=== PATIENT | female | born 1945 | race Caucasian/White ===

== ENCOUNTER → 2018-01-27 12:47 | Outpatient (CLI) | payer MEDICARE, BC, SELFPAY ==
[2018-01-27 13:23] LABS: Add Manual Diff / Slide Review NO; Basophils Percent Auto 0.9 % (0-2); Eosinophils Percent Auto 1.6 % (2-4); Lymphocytes Percent Auto 25.7 % (25-40); Mean Corpuscular HGB Conc 34.2 % (30-36); Mean Corpuscular Hemoglobin 29.5 PG (26-34); Mean Corpuscular Volume 86.5 fL (80-100); Monocytes Percent Auto 9.7 % (3-14); Neutrophils Absolute Auto 4000 /uL (3000-5900); Neutrophils Percent Auto 62.1 % (50-75); Platelet Count 213 X10^3/uL (150-400); Red Blood Cell Count 4.74 X10^6/uL (4.0-5.2); White Blood Cell Count 6.4 X10^3/uL (4.5-11.0)
[2018-01-27 14:05] LABS: Alanine Aminotransferase 39 IU/L (9-52); Albumin 4.2 g/dL (3.5-5.0); Albumin Globulin Ratio 1.6 (1.0-2.8); Alkaline Phosphatase 72 U/L (38-126); Aspartate Aminotransferase 27 IU/L (14-36); BUN Creatinine Ratio 24.3 (6-22); Bilirubin Total 0.5 mg/dL (0.2-1.3); Blood Urea Nitrogen 17 mg/dL (7-17); Calcium 9.1 mg/dL (8.4-10.2); Carbon Dioxide 26 mmol/L (22-32); Chloride 101 mmol/L (98-107); Cholesterol 147 mg/dL (140-199); Estimated Glomerular Filt Rate > 60.0 mL/min (>60); Globulin 2.7 g/dL (1.7-4.1); Glucose 96 mg/dL (80-110); HDL Cholesterol 42 mg/dL (40-60); HEMOLYSIS < 15 (0-50); LDL Cholesterol Calculated 86 mg/dL (<100); Potassium 4.7 mmol/L (3.4-5.1); Sodium 137 mmol/L (137-145); Total Protein 6.9 g/dL (6.3-8.2); Triglycerides 97 mg/dL (35-150)
== END ==
PROVIDERS: PCP Family Medicine; Visit Provider Family Medicine
DX: I10 Essential (primary) hypertension (principal); Z13.220 Encounter for screening for lipoid disorders
CPT/HCPCS: 36415; 80053; 80061; 85025

== ENCOUNTER → 2018-11-27 12:34 | Outpatient (CLI) | payer MEDICARE, BC, SELFPAY | PROVIDERS: PCP Student in an Organized Health Care Education/Training Program; Visit Provider Student in an Organized Health Care Education/Training Program | DX: M81.0 Age-related osteoporosis without current pathological fracture (principal); Z78.0 Asymptomatic menopausal state; Z91.89 Other specified personal risk factors, not elsewhere classified; Z87.891 Personal history of nicotine dependence | CPT/HCPCS: 77080 ==

== ENCOUNTER 2019-03-05 09:45 | Outpatient (RCR) | payer MEDICARE, BC, SELFPAY ==
--- NOTE | 2019-02-25 15:40 | PT.OIE ---
Current Diagnoses Benign paroxysmal vertigo, unspecified ear (02/25/19) Benign paroxysmal vertigo, right ear (02/25/19) Dizziness and giddiness (02/25/19) Past Medical History (Last Reviewed 01/27/18 @ 12:33 by Deandre Whitaker MD) Asthma (Chronic Unknown) Hirsutism (Chronic Unknown) Hypertension (Chronic Unknown) Amenorrhea (Resolved Unknown) Pneumonia (Resolved 1984) Menieres disease (Inactive Unknown) Past Surgical History (Last Reviewed 01/27/18 @ 12:33 by Deandre Whitaker MD) History of tonsillectomy and adenoidectomy (Resolved ~194) Provider Visit Care Team Role Provider Type Bruce Michelle MD Attending Provider Physician Primary Care Provider Specialty: Internal Medicine Address: [address] [place] [address] Email: Physical Therapy Initial Evaluation PT-OP-A Visit Information Start: 02/25/19 15:16 Freq: Status: Active Protocol: Document 02/25/19 14:30 DCW (Rec: 02/25/19 15:40 DCW [id number]) Out-Patient Physical Therapy Visit Information Visit Information Visit Type Initial Evaluation Visit Start Time 14:30 Visit Stop Time 15:15 Total Visit Minutes 45 Visit Number 1 Number of FRAME CLEANER Visits 0 Evaluation Information Evaluation Date 02/25/19 PT-OP-B Current Condition Start: 02/25/19 15:16 Freq: Status: Active Protocol: Document 02/25/19 14:30 DCW (Rec: 02/25/19 15:40 DCW [id number]) Current Condition History of Current Condition Onset Date 2007 Current Complaints Position-dependent vertigo History of Current Condition Pt is a 73 year old female complaining of an 11 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 Pt reports episodes last a few seconds at a time, but when it is active, it will normally continue with most movement for 3-4 days. Symptoms are typically provoked by bending forward or rolling in bed. Pt notes when it began in 2007, she was living in [facility] at the time, and doing a lot of work on her home, which involved a lot of bending over . Pt denies recent hearing changes, tinnitus, diplopia, dysarthria, discoordination, or decreased mentation/ consciousness. Pt reports symptoms are waxing/waning in nature. Pt denies hx of hyperlipidemia, diabetes, arrhythmia, head trauma, seizure, migraines, back/neck problems, CVA, anxiety/panic disorders, depression, or excessive smoking or drinking. Treatment Goals Patient/Caregiver Goals Eliminate position-dependent vertigo Prior Functional Status Baseline Function- ADL's Independent Baseline Function- Mobility Independent Current Functional Impairments (Reported) Functional Limitations- ADL's Vertigo when bending over and rolling in bed PT-OP-C Subjective Start: 02/25/19 15:16 Freq: Status: Active Protocol: Document 02/25/19 14:30 DCW (Rec: 02/25/19 15:40 DCW [id number]) Patient Questionnaires ABC- Activity Specific Balance Confidence Scale ABC Score 68.13% ABC Functional Impairment 20 to <40% Impaired (Score 61- 80) Dizziness Handicap Inventory DHI Score 66% DHI Functional Impairment 60 to 79% Impaired (Score 60- 79) PT-OP-O Vestibular Start: 02/25/19 15:16 Freq: Status: Active Protocol: Document 02/25/19 14:30 DCW (Rec: 02/25/19 15:40 DCW [id number]) Vestibular Assessment Screening Tests Vestibular Artery Screen Negative Sharp-Luciano Test Negative Auditory Tests Olson Test Negative Rinne Test Negative Air Conduction Results Equal Visual Testing Smooth Pursuits Horizontal Negative Smooth Pursuits Vertical Negative Saccades Horizontal Negative Gaze Evoked Nystagmus With Fixation Negative Gaze Evoked Nystagmus Without Fixation Negative Heave Test Positive Bilateral Thrust Head Positive Bilateral Head Shake Negative Spontaneous Nystagmus Negative Positional Testing Mayo-Hallpike Positive Right Negative Left Rolling Test Negative Left Negative Right Supine to Sit Negative Sit to Supine Negative Comments Vestibular Comments Pt complained of vertigo in right Naheed-Hallpike, however pt was rapidly blinking and it was difficult to distinguish if there was true nystagmus. PT-OP-Q Treatments Start: 02/25/19 15:16 Freq: Status: Active Protocol: Document 02/25/19 14:30 DCW (Rec: 02/25/19 15:40 DCW [id number]) Canalithic Repositioning BPPV Treatment [place] Affected Canal(s) R posterior Reps x2 PT-OP-T Assessment and Plan Start: 02/25/19 15:16 Freq: Status: Active Protocol: Document 02/25/19 14:30 DCW (Rec: 02/25/19 15:40 DCW [id number]) Physical Therapy Assessment Rehab Potential Rehabilitation Potential Excellent Evaluation Complexity Number of Personal Factors/Comorbidities 0 Number of Body Systems Impaired 1-2 Clinical Presentation at Evaluation Unstable Impairments Impairments Balance Vestibular Goals Two Impairment Positive right Hallpike test Short Term Goal (STG) Negative hallpike bilaterally STG Duration 03/28/19 One Impairment Pt c/o vertigo when bending forward to work on her [employer] projects Short Term Goal (STG) Pt to experience no vertigo when bending forward STG Duration 03/28/19 Assessment Summary Assessment During right Naheed-Hallpike test , pt complained of vertigo lasting approximately 5 seconds, 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 Pt was treated with a right-sided Orlando maneuver. Pt complained of symptoms in the first and third position, which is normally indicative of a successful treatment. Further positional testing was negative. Pt was educated on BPPV, expectations for treatment, possible recurrence (BPPV has a ~50% recurrence rate in the five years following treatment), and post -[place]lando restrictions. Pt to return in ~1 week for a follow -up appointment, and intermittently afterward as indicated for treatment of BPPV. Physical Therapy Plan Frequency and Duration Frequency of Treatment 1x/Week Duration of Treatment 6 weeks Plan of Care Start Date 02/25/19 Plan of Care End Date 04/08/19 Therapeutic Interventions Therapeutic Interventions Balance Training Canalithic Repositioning Vestibular Rehabilitation Next Visit Focus/Plan Next Note Type Treatment Note Next Visit Plan Further positional testing, CRM as indicated
--- NOTE | 2019-02-25 15:40 | PT.OPPOC ---
Current Diagnoses Benign paroxysmal vertigo, unspecified ear (02/25/19) Benign paroxysmal vertigo, right ear (02/25/19) Dizziness and giddiness (02/25/19) Provider Visit Care Team Role Provider Type Bruce Michelle MD Attending Provider Physician Primary Care Provider Specialty: Internal Medicine Address: [address] [place] [address], [id number] Email: Plan Of Care PT-OP-T Assessment and Plan Start: 02/25/19 15:16 Freq: Status: Active Protocol: Document 02/25/19 14:30 DCW (Rec: 02/25/19 15:40 DCW [id number]) Physical Therapy Assessment Rehab Potential Rehabilitation Potential Excellent Evaluation Complexity Number of Personal Factors/Comorbidities 0 Number of Body Systems Impaired 1-2 Clinical Presentation at Evaluation Unstable Impairments Impairments Balance Vestibular Goals Two Impairment Positive right Hallpike test Short Term Goal (STG) Negative hallpike bilaterally STG Duration 03/28/19 One Impairment Pt c/o vertigo when bending forward to work on her [employer] projects Short Term Goal (STG) Pt to experience no vertigo when bending forward STG Duration 03/28/19 Assessment Summary Assessment During right Naheed-Hallpike test , pt complained of vertigo lasting approximately 5 seconds, 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 Pt was treated with a right-sided [place] maneuver. Pt complained of symptoms in the first and third position, which is normally indicative of a successful treatment. Further positional testing was negative. Pt was educated on BPPV, expectations for treatment, possible recurrence (BPPV has a ~50% recurrence rate in the five years following treatment), and post -[place] restrictions. Pt to return in ~1 week for a follow -up appointment, and intermittently afterward as indicated for treatment of BPPV. Physical Therapy Plan Frequency and Duration Frequency of Treatment 1x/Week Duration of Treatment 6 weeks Plan of Care Start Date 02/25/19 Plan of Care End Date 04/08/19 Therapeutic Interventions Therapeutic Interventions Balance Training Canalithic Repositioning Vestibular Rehabilitation Next Visit Focus/Plan Next Note Type Treatment Note Next Visit Plan Further positional testing, CRM as indicated Plan of Care Dates Plan of Care Start Date 02/25/19 Plan of Care End Date 04/08/19 Please Sign and Return: I have reviewed this Plan of Care and certify that the skilled therapy services above are required to meet the patient?s needs. Physician Signature Date Printed Name and Credentials Clinical Instructor Signature Printed Name and Credentials
--- NOTE | 2019-03-05 10:00 | PT.OTN ---
Current Diagnoses Benign paroxysmal vertigo, unspecified ear (03/05/19) Benign paroxysmal vertigo, right ear (03/05/19) Physical Therapy Treatment Note PT-OP-A Visit Information Start: 02/25/19 15:16 Freq: Status: Active Protocol: Document 03/05/19 09:35 DCW (Rec: 03/05/19 10:00 DCW [id number]) Out-Patient Physical Therapy Visit Information Visit Information Visit Type Initial Evaluation Visit Start Time 09:35 Visit Stop Time 10:00 Total Visit Minutes 25 Visit Number 2 Number of POWERHOUSE ENGINEER Visits 0 PT-OP-B Current Condition Start: 02/25/19 15:16 Freq: Status: Active Protocol: Document 02/25/19 14:30 DCW (Rec: 02/25/19 15:40 DCW [id number]) Current Condition History of Current Condition Onset Date 2007 Current Complaints Position-dependent vertigo History of Current Condition Pt is a 73 year old female complaining of an 11 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 Pt reports episodes last a few seconds at a time, but when it is active, it will normally continue with most movement for 3-4 days. Symptoms are typically provoked by bending forward or rolling in bed. Pt notes when it began in 2007, she was living in [facility] at the time, and doing a lot of work on her home, which involved a lot of bending over . Pt denies recent hearing changes, tinnitus, diplopia, dysarthria, discoordination, or decreased mentation/ consciousness. Pt reports symptoms are waxing/waning in nature. Pt denies hx of hyperlipidemia, diabetes, arrhythmia, head trauma, seizure, migraines, back/neck problems, CVA, anxiety/panic disorders, depression, or excessive smoking or drinking. Treatment Goals Patient/Caregiver Goals Eliminate position-dependent vertigo Prior Functional Status Baseline Function- ADL's Independent Baseline Function- Mobility Independent Current Functional Impairments (Reported) Functional Limitations- ADL's Vertigo when bending over and rolling in bed PT-OP-C Subjective Start: 02/25/19 15:16 Freq: Status: Active Protocol: Document 03/05/19 09:35 DCW (Rec: 03/05/19 10:00 DCW [id number]) OP-PT Subjective Patient Comments Patient Comments Pt felt much better the three nights following her initial evaluation, however has had some mild symptoms the past few days. PT-OP-O Vestibular Start: 02/25/19 15:16 Freq: Status: Active Protocol: Document 03/05/19 09:35 DCW (Rec: 03/05/19 10:00 DCW [id number]) Vestibular Assessment Positional Testing Dallas-Hallpike Negative Left Negative Right Rolling Test Negative Left Negative Right Supine to Sit Negative Sit to Supine Negative PT-OP-Q Treatments Start: 02/25/19 15:16 Freq: Status: Active Protocol: Document 03/05/19 09:35 DCW (Rec: 03/05/19 10:00 DCW [id number]) Canalithic Repositioning BPPV Treatment [place] Affected Canal(s) R posterior Reps x2 PT-OP-T Assessment and Plan Start: 02/25/19 15:16 Freq: Status: Active Protocol: Document 03/05/19 09:35 DCW (Rec: 03/05/19 10:00 DCW [id number]) Physical Therapy Assessment Impairments Impairments Balance Vestibular Goals Two Impairment Positive right Hallpike test Short Term Goal (STG) Negative hallpike bilaterally STG Duration 03/28/19 One Impairment Pt c/o vertigo when bending forward to work on her [employer] projects Short Term Goal (STG) Pt to experience no vertigo when bending forward STG Duration 03/28/19 Assessment Summary Assessment Pt reported vauge symptoms during her first Dallas-Hallpike, however there was no associated nystagmus present. Right Orlan[place] maneuver x2 was performed, pt reported feeling much better during the second Orlando. Pt did not schedule any further visits, but was informed that her chart would be kept open for one month, and if her symptoms return again, to call for a follow-up visit. Physical Therapy Plan Frequency and Duration Frequency of Treatment 1x/Week Duration of Treatment 6 weeks Plan of Care Start Date 02/25/19 Plan of Care End Date 04/08/19 Therapeutic Interventions Therapeutic Interventions Balance Training Canalithic Repositioning Vestibular Rehabilitation Next Visit Focus/Plan Next Note Type Treatment Note Next Visit Plan Further positional testing, CRM as indicated
--- NOTE | 2019-04-15 14:21 | PT.OPDS ---
Current Diagnoses Benign paroxysmal vertigo, unspecified ear (03/05/19) Benign paroxysmal vertigo, right ear (03/05/19) Provider Visit Care Team Role Provider Type Bruce Michelle MD Attending Provider Physician Primary Care Provider Specialty: Internal Medicine Address: [address] [place] [address], [address], [facility] Email: [email or web address] Visit Number Visit Number 2 Discharge Summary PT-OP-B Current Condition Start: 02/25/19 15:16 Freq: Status: Active Protocol: Document 02/25/19 14:30 DCW (Rec: 02/25/19 15:40 DCW [id number]) Current Condition History of Current Condition Onset Date 2007 Current Complaints Position-dependent vertigo History of Current Condition Pt is a 73 year old female complaining of an 11 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 Pt reports episodes last a few seconds at a time, but when it is active, it will normally continue with most movement for 3-4 days. Symptoms are typically provoked by bending forward or rolling in bed. Pt notes when it began in 2007, she was living in [facility] at the time, and doing a lot of work on her home, which involved a lot of bending over . Pt denies recent hearing changes, tinnitus, diplopia, dysarthria, discoordination, or decreased mentation/ consciousness. Pt reports symptoms are waxing/waning in nature. Pt denies hx of hyperlipidemia, diabetes, arrhythmia, head trauma, seizure, migraines, back/neck problems, CVA, anxiety/panic disorders, depression, or excessive smoking or drinking. Treatment Goals Patient/Caregiver Goals Eliminate position-dependent vertigo Prior Functional Status Baseline Function- ADL's Independent Baseline Function- Mobility Independent Current Functional Impairments (Reported) Functional Limitations- ADL's Vertigo when bending over and rolling in bed PT-OP-C Subjective Start: 02/25/19 15:16 Freq: Status: Active Protocol: Document 03/05/19 09:35 DCW (Rec: 03/05/19 10:00 DCW [id number]) OP-PT Subjective Patient Comments Patient Comments Pt felt much better the three nights following her initial evaluation, however has had some mild symptoms the past few days. PT-OP-O Vestibular Start: 02/25/19 15:16 Freq: Status: Active Protocol: Document 03/05/19 09:35 DCW (Rec: 03/05/19 10:00 DCW [id number]) Vestibular Assessment Positional Testing Lynn-Hallpike Negative Left Negative Right Rolling Test Negative Left Negative Right Supine to Sit Negative Sit to Supine Negative PT-OP-T Assessment and Plan Start: 02/25/19 15:16 Freq: Status: Active Protocol: Document 04/15/19 14:17 DCW (Rec: 04/15/19 14:21 DCW [id number]) Physical Therapy Assessment Impairments Impairments Balance Vestibular Goals Two Impairment Positive right Hallpike test Short Term Goal (STG) Negative hallpike bilaterally STG Duration 03/28/19 One Impairment Pt c/o vertigo when bending forward to work on her [employer] projects Short Term Goal (STG) Pt to experience no vertigo when bending forward STG Duration 03/28/19 Assessment Summary Assessment Pt was instructed to phone the clinic to schedule a follow- up visit within one month. this month has passed, pt has not scheduled any further visits, and she will be discharged at this time. Pt will require a new referral in order to return to skilled vestibular therapy. Physical Therapy Plan Frequency and Duration Frequency of Treatment 1x/Week Duration of Treatment 6 weeks Plan of Care Start Date 02/25/19 Plan of Care End Date 04/08/19 Therapeutic Interventions Therapeutic Interventions Balance Training Canalithic Repositioning Vestibular Rehabilitation Discharge Physical Therapy Discharge Reasons No Longer Attending PT Next Visit Focus/Plan Next Note Type Discharge Summary
== END 2019-04-17 10:06 | disposition home or self-care (01) ==
LOC: PHYS 09:45
PROVIDERS: PCP Student in an Organized Health Care Education/Training Program; Visit Provider Student in an Organized Health Care Education/Training Program
DX: H81.10 Benign paroxysmal vertigo, unspecified ear (principal); H81.11 Benign paroxysmal vertigo, right ear
CPT/HCPCS: 95992; 97140; 97161

== ENCOUNTER 2019-09-30 14:30 | Outpatient (RCR) | payer MEDICARE, BC, SELFPAY ==
--- NOTE | 2019-08-28 16:00 | PT.OPPOC ---
Physical, Occupational & Speech Therapy At [facility] Current Diagnoses Benign paroxysmal vertigo, unspecified ear (08/28/19) Dizziness and giddiness (08/28/19) Visit Care Team Role Provider Type Bruce Michelle MD Attending Provider Physician Primary Care Provider Specialty: Internal Medicine Address: [address] [place] [address], [address], [facility] Email: [email or web address] Plan Of Care PT-OP-T Assessment and Plan Start: 08/28/19 07:03 Freq: Status: Active Protocol: Document 08/28/19 13:45 AMB (Rec: 08/30/19 13:14 AMB [id number]) Physical Therapy Assessment Rehab Potential Rehabilitation Potential Excellent Evaluation Complexity Number of Personal Factors/Comorbidities 1-2 Number of Body Systems Impaired 1-2 Clinical Presentation at Evaluation Stable Impairments Impairments Vestibular Other Concerns Fall Risk pt denies any recent falls Goals Two Impairment Positive right Hallpike test Short Term Goal (STG) Negative hallpike bilaterally STG Duration 09/28/18 One Impairment Pt c/o vertigo when bending forward to work on her [employer] projects Short Term Goal (STG) Pt to experience no vertigo when bending forward STG Duration 09/28/18 Assessment Summary Assessment Maty attends PT with signs and symptoms consistent with R posterior canalithiasis BPPV which is what she had last time she was seen here 6 months ago. It sounds like she has had two completely separate instances of BPPV since she had a good resolution of symptoms between being seen here. It is concerning that her symptoms have come back, but given her age and gender not especially surprising. She was given a handout today on self Orlando maneuver, but told she is welcome to return to PT if she does have sx in the future. She appeared to have good treatment with the Orlando maneuver today, with resolution of sx and nystagmus with second Orlando maneuver. We will see her in a few weeks and further assess her balance, and make sure she continues to not have nystagmus. Physical Therapy Plan Frequency and Duration Frequency of Treatment 2x/Week Duration of Treatment 1 month Plan of Care Start Date 08/28/19 Plan of Care End Date 09/28/19 Therapeutic Interventions Therapeutic Interventions Balance Training,Canalithic Repositioning,Neuromuscular Re -education,Vestibular Rehabilitation Next Visit Focus/Plan Next Note Type Treatment Note Next Visit Plan Reassess Natali, assess/ treat balance as necessary Plan of Care Dates Plan of Care Start Date 08/28/19 Plan of Care End Date 09/28/19 Electronically Signed by: Destiny Zuleta, PT 08/30/19 4001 Please Sign and Return: I have reviewed this Plan of Care and certify that the skilled therapy services above are required to meet the patient?s needs. Physician Signature Date Printed Name and Credentials Clinical Instructor Signature Printed Name and Credentials
--- NOTE | 2019-08-28 16:00 | PT.OIE ---
Current Diagnoses Benign paroxysmal vertigo, unspecified ear (08/28/19) Dizziness and giddiness (08/28/19) Past Medical History (Last Reviewed 01/27/18 @ 12:33 by Deandre Whitaker MD) Amenorrhea (Resolved Unknown) Asthma (Chronic Unknown) Hirsutism (Chronic Unknown) Hypertension (Chronic Unknown) Menieres disease (Inactive Unknown) Pneumonia (Resolved 1984) Past Surgical History (Last Reviewed 01/27/18 @ 12:33 by Deandre Whitaker MD) History of tonsillectomy and adenoidectomy (Resolved ~194) Visit Care Team Role Provider Type Bruce Michelle MD Attending Provider Physician Primary Care Provider Specialty: Internal Medicine Address: [address] [place] [address], [address], [facility] Email: [email or web address] Physical Therapy Initial Evaluation PT-OP-A Visit Information Start: 08/28/19 07:03 Freq: Status: Active Protocol: Document 08/28/19 13:45 AMB (Rec: 08/30/19 13:14 AMB [email or web address]) Out-Patient Physical Therapy Visit Information Visit Information Visit Type Initial Evaluation Visit Start Time 13:45 Visit Stop Time 14:30 Total Visit Minutes 45 Visit Number 1 PT-OP-B Current Condition Start: 08/28/19 07:03 Freq: Status: Active Protocol: Document 08/28/19 13:45 AMB (Rec: 08/30/19 13:14 AMB [email or web address]) Current Condition History of Current Condition Onset Date 3 weeks ago Current Complaints dizziness, especially looking down, rolling over in bed History of Current Condition Felisa reports dizziness that started in 2007. She didn't know there was anything she could do about it until recently. She was seen in this clinic and treated for R sided posterior canalithiasis BPPV this summer. Her dizziness resolved until a few weeks ago. She does report a history of L sided neck pain present for the past few years , but denies any new onset diploplia, ear pressure, or other concerning symptoms. Personal Factors Other Personal Factors That May Effect Hypertension, neuropathy, Therapy/Recovery osteoporosis (taking calcium supplement) PT-OP-C Subjective Start: 08/28/19 07:03 Freq: Status: Active Protocol: Document 08/28/19 13:45 AMB (Rec: 08/30/19 13:14 AMB [email or web address]) Patient Questionnaires ABC- Activity Specific Balance Confidence Scale ABC Score 40 ABC Functional Impairment 60 to <80% Impaired (Score 21- 40) Dizziness Handicap Inventory DHI Score 46 DHI Functional Impairment 40 to 59% Impaired (Score 40- 59) PT-OP-O Vestibular Start: 08/28/19 07:03 Freq: Status: Active Protocol: Document 08/28/19 13:45 AMB (Rec: 08/30/19 13:14 AMB [email or web address]) Vestibular Assessment Visual Testing Smooth Pursuits Horizontal WFL Smooth Pursuits Vertical WFL Saccades Horizontal WFL Saccades Vertical WFL Gaze Evoked Nystagmus With Fixation Negative Thrust Head Negative Convergence Test Impaired Positional Testing Naheed-Hallpike Positive Right,Negative Left, Upbeating,< 60 Seconds PT-OP-T Assessment and Plan Start: 08/28/19 07:03 Freq: Status: Active Protocol: Document 08/28/19 13:45 AMB (Rec: 08/30/19 13:14 AMB [email or web address]) Physical Therapy Assessment Rehab Potential Rehabilitation Potential Excellent Evaluation Complexity Number of Personal Factors/Comorbidities 1-2 Number of Body Systems Impaired 1-2 Clinical Presentation at Evaluation Stable Impairments Impairments Vestibular Other Concerns Fall Risk pt denies any recent falls Goals Two Impairment Positive right Hallpike test Short Term Goal (STG) Negative hallpike bilaterally STG Duration 09/28/18 One Impairment Pt c/o vertigo when bending forward to work on her [employer] projects Short Term Goal (STG) Pt to experience no vertigo when bending forward STG Duration 09/28/18 Assessment Summary Assessment Maty attends PT with signs and symptoms consistent with R posterior canalithiasis BPPV which is what she had last time she was seen here 6 months ago. It sounds like she has had two completely separate instances of BPPV since she had a good resolution of symptoms between being seen here. It is concerning that her symptoms have come back, but given her age and gender not especially surprising. She was given a handout today on self Orlando maneuver, but told she is welcome to return to PT if she does have sx in the future. She appeared to have good treatment with the Orlando maneuver today, with resolution of sx and nystagmus with second Orlando maneuver. We will see her in a few weeks and further assess her balance, and make sure she continues to not have nystagmus. Physical Therapy Plan Frequency and Duration Frequency of Treatment 2x/Week Duration of Treatment 1 month Plan of Care Start Date 08/28/19 Plan of Care End Date 09/28/19 Therapeutic Interventions Therapeutic Interventions Balance Training,Canalithic Repositioning,Neuromuscular Re -education,Vestibular Rehabilitation Next Visit Focus/Plan Next Note Type Treatment Note Next Visit Plan Reassess Naheed-Hallpike, assess/ treat balance as necessary
--- NOTE | 2019-09-15 15:47 | PT.OTN ---
Current Diagnoses Benign paroxysmal vertigo, unspecified ear (09/15/19) Dizziness and giddiness (09/15/19) Physical Therapy Treatment Note PT-OP-A Visit Information Start: 08/28/19 07:03 Freq: Status: Active Protocol: Document 09/15/19 13:45 AMB (Rec: 09/15/19 15:31 AMB [id number]) Out-Patient Physical Therapy Visit Information Visit Information Visit Type Initial Evaluation Visit Start Time 13:45 Visit Stop Time 14:30 Total Visit Minutes 45 Visit Number 2 PT-OP-B Current Condition Start: 08/28/19 07:03 Freq: Status: Active Protocol: Document 08/28/19 13:45 AMB (Rec: 08/30/19 13:14 AMB [email or web address]) Current Condition History of Current Condition Onset Date 3 weeks ago Current Complaints dizziness, especially looking down, rolling over in bed History of Current Condition Felisa reports dizziness that started in 2007. She didn't know there was anything she could do about it until recently. She was seen in this clinic and treated for R sided posterior canalithiasis BPPV this summer. Her dizziness resolved until a few weeks ago. She does report a history of L sided neck pain present for the past few years , but denies any new onset diploplia, ear pressure, or other concerning symptoms. Personal Factors Other Personal Factors That May Effect Hypertension, neuropathy, Therapy/Recovery osteoporosis (taking calcium supplement) PT-OP-C Subjective Start: 08/28/19 07:03 Freq: Status: Active Protocol: Document 09/15/19 13:45 AMB (Rec: 09/15/19 15:31 AMB [id number]) OP-PT Subjective Patient Comments Patient Comments Pt state, she has been feeling better, although she was dizzy for one day about 2 weeks ago. PT-OP-O Vestibular Start: 08/28/19 07:03 Freq: Status: Active Protocol: Document 08/28/19 13:45 AMB (Rec: 08/30/19 13:14 AMB [email or web address]) Vestibular Assessment Visual Testing Smooth Pursuits Horizontal WFL Smooth Pursuits Vertical WFL Saccades Horizontal WFL Saccades Vertical WFL Gaze Evoked Nystagmus With Fixation Negative Thrust Head Negative Convergence Test Impaired Positional Testing [place]-Hallpike Positive Right,Negative Left, Upbeating,< 60 Seconds PT-OP-Q Treatments Start: 08/28/19 07:03 Freq: Status: Active Protocol: Document 09/15/19 13:45 AMB (Rec: 09/15/19 15:47 AMB [email or web address]) Neuro Re-Education Treatment Other Activities 2 Details Recheck Naheed-Hallpike Comments negative 1 Details VOR1 Reps/Duration 30x3 Comments slow- standing NBOS PT-OP-T Assessment and Plan Start: 08/28/19 07:03 Freq: Status: Active Protocol: Document 09/15/19 13:45 AMB (Rec: 09/15/19 15:31 AMB [id number]) Physical Therapy Assessment Assessment Summary Assessment No nystagmus seen in R,L naheed- hallpike or horizontal canal testing. Pt did have 6 line difference with DVA testing. Given VOR1 for HEP. Physical Therapy Plan Next Visit Focus/Plan Next Visit Plan Reassess VOR HEP
--- NOTE | 2019-09-30 16:52 | PT.OTN ---
Current Diagnoses Benign paroxysmal vertigo, unspecified ear (09/30/19) Dizziness and giddiness (09/30/19) Physical Therapy Treatment Note PT-OP-A Visit Information Start: 08/28/19 07:03 Freq: Status: Active Protocol: Document 09/30/19 16:18 AMB (Rec: 09/30/19 16:52 AMB [email or web address]) Out-Patient Physical Therapy Visit Information Visit Information Visit Type Treatment Note Visit Start Time 14:30 Visit Stop Time 15:15 Total Visit Minutes 45 Visit Number 3 PT-OP-B Current Condition Start: 08/28/19 07:03 Freq: Status: Active Protocol: Document 08/28/19 13:45 AMB (Rec: 08/30/19 13:14 AMB [email or web address]) Current Condition History of Current Condition Onset Date 3 weeks ago Current Complaints dizziness, especially looking down, rolling over in bed History of Current Condition Felisa reports dizziness that started in 2007. She didn't know there was anything she could do about it until recently. She was seen in this clinic and treated for R sided posterior canalithiasis BPPV this summer. Her dizziness resolved until a few weeks ago. She does report a history of L sided neck pain present for the past few years , but denies any new onset diploplia, ear pressure, or other concerning symptoms. Personal Factors Other Personal Factors That May Effect Hypertension, neuropathy, Therapy/Recovery osteoporosis (taking calcium supplement) PT-OP-C Subjective Start: 08/28/19 07:03 Freq: Status: Active Protocol: Document 09/30/19 16:18 AMB (Rec: 09/30/19 16:52 AMB [email or web address]) OP-PT Subjective Patient Comments Patient Comments Pt overall better, she tried to up her VOR exercises to 2 minutes and that increased her jaw pain (she thinks she was clenching her jaw during the exercise). PT-OP-O Vestibular Start: 08/28/19 07:03 Freq: Status: Active Protocol: Document 08/28/19 13:45 AMB (Rec: 08/30/19 13:14 AMB [email or web address]) Vestibular Assessment Visual Testing Smooth Pursuits Horizontal WFL Smooth Pursuits Vertical WFL Saccades Horizontal WFL Saccades Vertical WFL Gaze Evoked Nystagmus With Fixation Negative Thrust Head Negative Convergence Test Impaired Positional Testing Naheed-Hallpike Positive Right,Negative Left, Upbeating,< 60 Seconds PT-OP-Q Treatments Start: 08/28/19 07:03 Freq: Status: Active Protocol: Document 09/30/19 16:18 AMB (Rec: 09/30/19 16:52 AMB [email or web address]) Neuro Re-Education Treatment Other Activities 1 Details VOR1 Reps/Duration 30x3 Comments slow- standing NBOS- then modified tandem stance, explained more complex backgrounds, reintroduced small ROM and increasing speed . Self-Care/Home Management Treatment Education Other Education Extensive education on reasoning behind HEP, how to independently increase challenge of it, and pathophysiology of both unilateral vestibular hypofunction and BPPV. PT-OP-T Assessment and Plan Start: 08/28/19 07:03 Freq: Status: Active Protocol: Document 09/30/19 16:18 AMB (Rec: 09/30/19 16:52 AMB [email or web address]) Physical Therapy Assessment Goals Two Impairment Positive right Hallpike test Short Term Goal (STG) Negative hallpike bilaterally STG Duration MET One Impairment Pt c/o vertigo when bending forward to work on her [employer] projects Short Term Goal (STG) Pt to experience no vertigo when bending forward STG Duration MET Assessment Summary Assessment Maty's overall dizziness has improved. No signs of BPPV at this time, she is showing signs of unilateral vestibular hypofunction, which can occur after BPPV or with the aging process. She was given a HEP for this and extensive education on how to independently manage at this time. She is comfortable with being discharged at this time , and if she does not improve with her HEP over the next few months would be welcome to return. Physical Therapy Plan Frequency and Duration Frequency of Treatment 1x/Week Duration of Treatment 1 week Plan of Care Start Date 08/28/19 Plan of Care End Date 09/04/19 Therapeutic Interventions Therapeutic Interventions Balance Training,Canalithic Repositioning,Neuromuscular Re -education,Self-Care/Home Management,Therapeutic Activities,Therapeutic Exercises,Vestibular Rehabilitation Discharge Physical Therapy Discharge Reasons Goals Met
--- NOTE | 2019-09-30 16:52 | PT.OPPOC ---
Physical, Occupational & Speech Therapy At [facility] Current Diagnoses Benign paroxysmal vertigo, unspecified ear (09/30/19) Dizziness and giddiness (09/30/19) Visit Care Team Role Provider Type Bruce Michelle MD Attending Provider Physician Primary Care Provider Specialty: Internal Medicine Address: [address] [place] [address], [address], [facility] Email: [email or web address] Plan Of Care PT-OP-T Assessment and Plan Start: 08/28/19 07:03 Freq: Status: Active Protocol: Document 09/30/19 16:18 AMB (Rec: 09/30/19 16:52 AMB [email or web address]) Physical Therapy Assessment Goals Two Impairment Positive right Hallpike test Short Term Goal (STG) Negative hallpike bilaterally STG Duration MET One Impairment Pt c/o vertigo when bending forward to work on her [employer] projects Short Term Goal (STG) Pt to experience no vertigo when bending forward STG Duration MET Assessment Summary Assessment Maty's overall dizziness has improved. No signs of BPPV at this time, she is showing signs of unilateral vestibular hypofunction, which can occur after BPPV or with the aging process. She was given a HEP for this and extensive education on how to independently manage at this time. She is comfortable with being discharged at this time , and if she does not improve with her HEP over the next few months would be welcome to return. Physical Therapy Plan Frequency and Duration Frequency of Treatment 1x/Week Duration of Treatment 1 week Plan of Care Start Date 08/28/19 Plan of Care End Date 09/04/19 Therapeutic Interventions Therapeutic Interventions Balance Training,Canalithic Repositioning,Neuromuscular Re -education,Self-Care/Home Management,Therapeutic Activities,Therapeutic Exercises,Vestibular Rehabilitation Discharge Physical Therapy Discharge Reasons Goals Met Plan of Care Dates Plan of Care Start Date 08/28/19 Plan of Care End Date 09/04/19 Electronically Signed by: Destiny Zuleta, PT 09/30/19 [id number] Please Sign and Return: I have reviewed this Plan of Care and certify that the skilled therapy services above are required to meet the patient?s needs. Physician Signature Date Printed Name and Credentials Clinical Instructor Signature Printed Name and Credentials
== END 2019-10-01 08:07 ==
LOC: PHYS 14:30
PROVIDERS: PCP Student in an Organized Health Care Education/Training Program; Visit Provider Student in an Organized Health Care Education/Training Program
DX: H81.10 Benign paroxysmal vertigo, unspecified ear (principal)
CPT/HCPCS: 97112; 97161; 97535

== ENCOUNTER → 2020-06-07 10:35 | Outpatient (CLI) | payer MEDICARE, BC, SELFPAY ==
[2020-06-07 11:55] LABS: Blood Urea Nitrogen 20 mg/dL (7-17); Calcium 8.8 mg/dL (8.4-10.2); Carbon Dioxide 30 mmol/L (22-32); Chloride 103 mmol/L (98-107); Estimated Glomerular Filt Rate > 60.0 mL/min (>60); Glucose 90 mg/dL (80-110); HEMOLYSIS < 15 (0-50); Potassium 4.5 mmol/L (3.4-5.1); Sodium 137 mmol/L (137-145)
== END ==
PROVIDERS: PCP Student in an Organized Health Care Education/Training Program; Referring Provider Student in an Organized Health Care Education/Training Program; Visit Provider Student in an Organized Health Care Education/Training Program
DX: I10 Essential (primary) hypertension (principal)
CPT/HCPCS: 36415; 80048

== ENCOUNTER → 2022-01-08 13:22 | Outpatient (CLI) | payer MEDICARE, BC, SELFPAY ==
[2022-01-08 14:55] LABS: Blood Urea Nitrogen 16 mg/dL (7-17); Calcium 9.3 mg/dL (8.4-10.2); Carbon Dioxide 28 mmol/L (22-32); Chloride 102 mmol/L (98-107); Estimated Glomerular Filt Rate > 60 mL/min (>60); Glucose 85 mg/dL (80-110); HEMOLYSIS < 15 (0-50); Potassium 4.6 mmol/L (3.4-5.1); Sodium 137 mmol/L (137-145)
== END ==
PROVIDERS: PCP Student in an Organized Health Care Education/Training Program; Referring Provider Student in an Organized Health Care Education/Training Program; Visit Provider Student in an Organized Health Care Education/Training Program
DX: I10 Essential (primary) hypertension (principal)
CPT/HCPCS: 36415; 80048

== ENCOUNTER → 2022-01-08 15:15 | Outpatient (CLI) | payer MEDICARE, BC, SELFPAY ==
[2022-01-08 18:25] LABS: Creatinine Urine Random 78.1 mg/dL
[2022-01-08 18:28] LABS: Microalbumi Creatinin Ratio Ur 8.9 ug/mg CR (<30); Microalbumin Urine Random 0.7 mg/dL (0-1.6)
== END ==
PROVIDERS: PCP Student in an Organized Health Care Education/Training Program; Referring Provider Student in an Organized Health Care Education/Training Program; Visit Provider Student in an Organized Health Care Education/Training Program
DX: I10 Essential (primary) hypertension (principal)
CPT/HCPCS: 36415; 80048; 82043; 82570

== ENCOUNTER → 2022-02-07 11:29 | Outpatient (CLI) | payer MEDICARE, BC, SELFPAY | PROVIDERS: PCP Student in an Organized Health Care Education/Training Program; Referring Provider Student in an Organized Health Care Education/Training Program; Visit Provider Student in an Organized Health Care Education/Training Program | DX: Z78.0 Asymptomatic menopausal state (principal); M81.0 Age-related osteoporosis without current pathological fracture | CPT/HCPCS: 77080 ==

== ENCOUNTER 2022-04-23 13:53 | Emergency (ER) | payer MEDICARE, BC, SELFPAY ==
[2022-04-23 14:47] VITALS: BP 177/82; PULSE 59; RESP 17; TEMP 36.8; O2SAT 98; BMI 31.7
--- NOTE | 2022-04-23 15:10 | ED.EYEPROB ---
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 She was diagnosed with corneal abrasions on the right and then after she left the clinic she went to get a lot today and noticed that she could not pull on the straw with her mouth as expected. She noticed then that the left side of her face and mouth were numb. This was this last Saturday. Through the weekend she has noticed that her mouth and face and eye on the left is not functioning normally but she has normal sensation. She has no other symptoms other than the corneal abrasion symptoms on the right. Past history is remarkable for osteopenia, peripheral neuropathy, hypertension. No recent fever or injury other than the corneal abrasion. Related Data Previous Rx's Medication Instructions Recorded levalbuterol tartrate 45 2 puff inhalation Q4-6H PRN 12/22/20 mcg/actuation aerosol inhaler shortness of breath or wheezing #15 grams amlodipine 5 mg tablet 5 mg PO DAILY #90 tabs 01/31/22 lorazepam 1 mg tablet (Ativan) 1 mg PO BEDTIME PRN sleep #30 tabs 01/31/22 gabapentin 600 mg tablet See Rx Instructions .Route 02/15/22 .COMPLEX #180 tabs lisinopril 20 mg tablet 20 mg PO DAILY #90 tabs 02/15/22 alendronate 70 mg tablet (Fosamax) 70 mg PO QWEEK #12 tabs 04/16/22 erythromycin 5 mg/gram (0.5 %) eye 0.5 inch ophthalmic (eye) BID #3.5 04/20/22 ointment grams acyclovir 800 mg tablet 800 mg PO 5XD #25 tabs 04/23/22 Allergies Allergy/AdvReac Type Severity Reaction Status Date / Time trazodone AdvReac Intermediate Constipatio Verified 04/23/22 14:55 n Review of Systems Review of Systems Narrative: Complete review of systems is negative other than as noted above. Patient History Medical History (Updated 04/23/22 @ 15:09 by Lucien Jones MD) Amenorrhea (Unknown) Asthma (Unknown) Hirsutism (Unknown) Hypertension (Unknown) Menieres disease (Unknown) Pneumonia (1984) Surgical History History of tonsillectomy and adenoidectomy (~1947) Family History Father Cancer Grandfather No problems noted. Grandmother No problems noted. Mother Goiter Sister No problems noted. Social History Smoking Status: Former smoker Smoking Status: Former smoker alcohol intake frequency: holidays/special occasions only Substance Use Type: does not use Exam Narrative Exam Narrative: GENERAL: Alert, cooperative and in no distress. HEAD: Atraumatic. Normocephalic. EYES: Sclera are clear without icterus. Extraocular movements are full. ENT: No rhinorrhea. Oropharynx is moist. Mouth exam is benign. NECK: Supple. Full range of motion. CARDIOVASCULAR: Normal rate and rhythm without murmur gallop or rub. RESPIRATORY: Clear to auscultation. Breath sounds equal bilaterally. No wheezes, rales, or rhonchi. GASTROINTESTINAL: Abdomen soft, non-tender, nondistended. EXTREMITIES: No edema, full range of motion. No obvious trauma. BACK: Normal inspection, no CVA tenderness. 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 Forehead is flat, eye does not close, left nasal labial fold is flat. No other neurologic abnormalities. Upper extremity lower extremity strength is 5/5. Vision is normal extraocular movements are normal. SKIN: No rash or erythema of visible areas PSYCH: Normally oriented. Normal range of affect. 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 No other neurologic abnormality identified. I think it is coincidental that she was treated for corneal abrasion on the same day she noticed the symptoms. Zovirax prescribed. Recommend outpatient follow-up. Discharge Plan Departure Patient Disposition: Home Clinical Impression: Hanna's palsy Activity Restrictions/Additional Instructions: Your symptoms and physical examination are completely consistent with Hanna's palsy which is a facial nerve palsy not associated with stroke. There is good evidence that taking acyclovir for a week will help you get better faster and make complete resolution more likely. Follow-up with your doctor next week to discuss ongoing care as needed. Return to the emergency department for new or worsening symptoms such as weakness in arms or legs or vision disturbance or difficulty with speech but I do not suspect that these are likely to occur. Use the antibiotic ointment you already have in your left eye 2 or 3 times a day and then you can use just a moisturizing ointment [id number] over the next week or 2 as your Hanna's palsy is resolving to help protect your cornea. Prescriptions: New acyclovir 800 mg tablet 800 mg PO 5XD Qty: 25 0RF Rx Instructions: space evenly during waking hours No Action erythromycin 5 mg/gram (0.5 %) ointment 0.5 inch ophthalmic (eye) BID Qty: 3.5 0RF amlodipine 5 mg tablet 5 mg PO DAILY Qty: 90 3RF lorazepam [Ativan] 1 mg tablet 1 mg PO BEDTIME PRN (Reason: sleep) Qty: 30 4RF lisinopril 20 mg tablet 20 mg PO DAILY Qty: 90 3RF Rx Instructions: Start with 1/2 tabs daily for one week gabapentin 600 mg tablet See Rx Instructions .ROUTE .COMPLEX Qty: 180 2RF Rx Instructions: 1/2 tab(300mg) twice daily, 1 tab at bedtime(600mg); alendronate [Fosamax] 70 mg tablet 70 mg PO QWEEK Qty: 12 3RF levalbuterol tartrate 45 mcg/actuation HFA aerosol inhaler 2 puff INHALATION Q4-6H PRN (Reason: shortness of breath or wheezing) Qty: 15 5RF Referrals: Bruce Michelle MD [Primary Care Provider] -
== END 2022-04-23 15:16 | disposition home or self-care (01) ==
PROVIDERS: Emergency Provider Family Medicine Addiction Medicine; PCP Student in an Organized Health Care Education/Training Program
DX: G51.0 Bell's palsy (principal)
CPT/HCPCS: 99281

== ENCOUNTER → 2022-10-22 14:09 | Outpatient (CLI) | payer MEDICARE, BC, SELFPAY ==
--- NOTE | 2022-10-22 14:11 | DI.RAD.S_ITS ---
PROCEDURE: XR SHOULDER LT MIN 2V INDICATIONS: Left shoulder crepitus and pain TECHNIQUE: 3 views of the shoulder were acquired. COMPARISON: [facility], , SHOULDER MINIMUM 2 VIEW LEFT, 12/27/2016, 16:27. FINDINGS: Bones: No fractures or dislocations. No suspicious bony lesions. Visualized ribs appear intact. Superior subluxation of the humerus. Glenohumeral joint space narrowing with associated osteophytosis. Soft tissues: No suspicious soft tissue calcifications. IMPRESSION: 1. Moderate glenohumeral osteoarthritis. 2. Superior subluxation of the humerus, suggestive of prior rotator cuff injury. Dictated by: Dale Valdes M.D. on 10/22/2022 at 15:55 Approved by: Dale Valdes M.D. on 10/22/2022 at 15:56
== END ==
PROVIDERS: Family Provider Student in an Organized Health Care Education/Training Program; PCP Student in an Organized Health Care Education/Training Program; Referring Provider Student in an Organized Health Care Education/Training Program; Visit Provider Student in an Organized Health Care Education/Training Program
DX: M19.012 Primary osteoarthritis, left shoulder (principal); S43.002A Unspecified subluxation of left shoulder joint, initial encounter; M25.512 Pain in left shoulder
CPT/HCPCS: 73030

== ENCOUNTER → 2022-11-07 10:30 | Outpatient (CLI) | payer MEDICARE, BC, SELFPAY ==
--- NOTE | 2022-11-07 10:32 | DI.MRI.S_ITS ---
PROCEDURE: MR SHOULDER LT WO CON INDICATIONS: left shoulder pain TECHNIQUE: Noncontrast oblique coronal T2 fast spin echo with fat saturation, oblique sagittal T1 spin echo and T2 fast spin echo with fat saturation, axial T1 spin echo and T2 fast spin echo with fat saturation through the shoulder. COMPARISON: , , SHOULDER WITHOUT CONTRAST, 01/08/2017, 12:21. FINDINGS: Image quality: Excellent. Rotator cuff: There is low-grade partial bursal sided tearing of the supraspinatus tendon at the distal insertion measuring approximately 4 mm in anterior-posterior dimension. Findings are superimposed on mild supraspinatus and infraspinatus tendinosis. The teres minor tendon is intact. There is mild subscapularis tendinosis. There is mild generalized loss of muscle bulk without disproportionate atrophy of the rotator cuff musculature. Bones and bursae: Diffuse full-thickness cartilage loss is seen throughout the glenohumeral joint with subchondral edema, subchondral cystic changes, marginal osteophyte formation, and remodeling of the articular surfaces. Remodeling results in loss of posterior glenoid bone stock and approximately 22 degrees glenoid retroversion relative to the midplane of the scapula at the mid glenoid level. The humeral head is mildly high riding. There is widening of the acromioclavicular joint, which may be related to remote prior surgery or trauma and appears unchanged. There is a moderate glenohumeral effusion with mild synovial hypertrophy. No significant subacromial/subdeltoid bursal effusion. Capsule and soft tissues: There is diffuse labral degeneration. The proximal biceps long head tendon is intact. Glenohumeral ligaments are grossly intact. IMPRESSION: 1. Severe glenohumeral osteoarthrosis as described above with moderate subchondral edema, significantly progressed when compared to the MRI from 01/08/2017. There is remodeling of the glenoid resulting in approximately 22 degrees retroversion relative to the midplane of the scapula at the mid glenoid level. 2. Moderate glenohumeral effusion with mild synovial hypertrophy. 3. Low-grade partial bursal sided tearing of the supraspinatus tendon at the distal insertion superimposed on mild tendinosis. Mild infraspinatus and subscapularis tendinosis. Approved by: Kris Donald M.D. on 11/08/2022 at 12:36
== END ==
PROVIDERS: Family Provider Student in an Organized Health Care Education/Training Program; PCP Student in an Organized Health Care Education/Training Program; Referring Provider Student in an Organized Health Care Education/Training Program; Visit Provider Student in an Organized Health Care Education/Training Program
DX: M75.112 Incomplete rotator cuff tear or rupture of left shoulder, not specified as traumatic (principal); M19.012 Primary osteoarthritis, left shoulder; M25.412 Effusion, left shoulder; M25.512 Pain in left shoulder
CPT/HCPCS: 73221

== ENCOUNTER → 2023-04-12 14:06 | Outpatient (CLI) | payer MEDICARE, BC, SELFPAY ==
[2023-04-12 15:23] LABS: Alanine Aminotransferase 19 IU/L (<35); Albumin 3.8 g/dL (3.5-5.0); Albumin Globulin Ratio 1.3 (1.0-2.8); Alkaline Phosphatase 76 U/L (38-126); Aspartate Aminotransferase 24 IU/L (14-36); BUN Creatinine Ratio 16.4 (6-22); Bilirubin Total 0.7 mg/dL (0.2-1.3); Blood Urea Nitrogen 11 mg/dL (7-17); Calcium 9.1 mg/dL (8.4-10.2); Carbon Dioxide 27 mmol/L (22-32); Chloride 99 mmol/L (98-107); Estimated Glomerular Filt Rate > 60 mL/min (>60); Globulin 2.9 g/dL (1.7-4.1); Glucose 94 mg/dL (80-110); HEMOLYSIS < 15 (0-50); Lipase 172 U/L (23-300); Potassium 4.6 mmol/L (3.4-5.1); Sodium 135 mmol/L (137-145); Total Protein 6.7 g/dL (6.3-8.2)
[2023-04-12 15:53] LABS: TSH w/ Reflex to FT4 0.35 uIU/mL (0.47-4.68)
[2023-04-12 16:23] LABS: Vitamin D 25 Hydroxy (D3) 45.7 ng/mL (30.0-100.0)
[2023-04-12 16:28] LABS: Free T4, Direct Thyroxine 1.37 ng/dL (0.78-2.19)
[2023-04-12 16:35] LABS: Add Manual Diff / Slide Review NO; Basophils Absolute Auto 100 /uL (0-100); Basophils Percent Auto 0.6 % (0-2); Eosinophils Absolute Auto 200 /uL (0-450); Eosinophils Percent Auto 2.6 % (2-4); Hematocrit 41.5 % (36-46); Hemoglobin 14.3 g/dL (12.0-16.0); Lymphocytes Absolute Auto 1800 /uL (1100-4500); Lymphocytes Percent Auto 20.7 % (25-40); Mean Corpuscular HGB Conc 34.4 % (30-36); Mean Corpuscular Hemoglobin 29.7 PG (26-34); Mean Corpuscular Volume 86.3 fL (80-100); Monocytes Absolute Auto 700 /uL (0-900); Monocytes Percent Auto 8.4 % (3-14); Neutrophils Absolute Auto 5700 /uL (1500-7000); Neutrophils Percent Auto 67.7 % (50-75); Platelet Count 271 X10^3/uL (150-400); Red Blood Cell Count 4.81 X10^6/uL (4.0-5.2); Red Cell Distribution Width 13.8 % (11.6-14.8); White Blood Cell Count 8.5 X10^3/uL (4.5-11.0)
== END ==
PROVIDERS: Family Provider Student in an Organized Health Care Education/Training Program; PCP Pediatrics; Referring Provider Pediatrics; Visit Provider Pediatrics
DX: G62.9 Polyneuropathy, unspecified (principal); I10 Essential (primary) hypertension; M85.80 Other specified disorders of bone density and structure, unspecified site; R11.0 Nausea; E16.2 Hypoglycemia, unspecified
CPT/HCPCS: 36415; 80053; 82306; 83690; 84439; 84443; 85025

== ENCOUNTER → 2023-08-13 12:27 | Outpatient (CLI) | payer MEDICARE, BC, SELFPAY ==
[2023-08-13 13:45] LABS: TSH w/ Reflex to FT4 0.67 uIU/mL (0.47-4.68)
== END ==
PROVIDERS: Family Provider Student in an Organized Health Care Education/Training Program; PCP Family Medicine; Referring Provider Family Medicine; Visit Provider Family Medicine
DX: R79.89 Other specified abnormal findings of blood chemistry (principal)
CPT/HCPCS: 36415; 84443

== ENCOUNTER → 2023-12-16 13:21 | Outpatient (CLI) | payer MEDICARE, BC, SELFPAY ==
[2023-12-16 14:05] LABS: Add Manual Diff / Slide Review NO; Basophils Absolute Auto 100 /uL (0-100); Eosinophils Absolute Auto 300 /uL (0-450); Eosinophils Percent Auto 3.3 % (2-4); Hematocrit 40.9 % (36-46); Hemoglobin 13.7 g/dL (12.0-16.0); Lymphocytes Absolute Auto 1600 /uL (1100-4500); Lymphocytes Percent Auto 20.8 % (25-40); Mean Corpuscular HGB Conc 33.4 % (30-36); Mean Corpuscular Hemoglobin 29.4 PG (26-34); Mean Corpuscular Volume 87.9 fL (80-100); Monocytes Absolute Auto 700 /uL (0-900); Monocytes Percent Auto 8.3 % (3-14); Neutrophils Absolute Auto 5300 /uL (1500-7000); Neutrophils Percent Auto 66.6 % (50-75); Platelet Count 281 X10^3/uL (150-400); Red Blood Cell Count 4.65 X10^6/uL (4.0-5.2); Red Cell Distribution Width 13.4 % (11.6-14.8); White Blood Cell Count 7.9 X10^3/uL (4.5-11.0)
[2023-12-16 14:32] LABS: Alanine Aminotransferase 17 IU/L (<35); Albumin 4.1 g/dL (3.5-5.0); Albumin Globulin Ratio 1.4 (1.0-2.8); Alkaline Phosphatase 83 U/L (38-126); Aspartate Aminotransferase 23 IU/L (14-36); BUN Creatinine Ratio 22.1 (6-22); Bilirubin Total 0.6 mg/dL (0.2-1.3); Blood Urea Nitrogen 15 mg/dL (7-17); Calcium 9.2 mg/dL (8.4-10.2); Carbon Dioxide 24 mmol/L (22-32); Chloride 105 mmol/L (98-107); Estimated Glomerular Filt Rate > 60 mL/min (>60); Globulin 2.9 g/dL (1.7-4.1); Glucose 95 mg/dL (80-110); HEMOLYSIS < 15 (0-50); Potassium 4.4 mmol/L (3.4-5.1); Sodium 136 mmol/L (137-145)
== END ==
PROVIDERS: Family Provider Student in an Organized Health Care Education/Training Program; PCP Family Medicine; Referring Provider Family Medicine; Visit Provider Family Medicine
DX: M81.0 Age-related osteoporosis without current pathological fracture (principal); I10 Essential (primary) hypertension; G62.9 Polyneuropathy, unspecified
CPT/HCPCS: 36415; 80053; 85025

== ENCOUNTER 2024-12-18 15:56 | Emergency (ER) | payer MEDICARE, BC, SELFPAY ==
[2024-12-18 16:02] VITALS: BP 141/68; PULSE 52; RESP 14; TEMP 37.1; O2SAT 97; BMI 32.5
--- NOTE | 2024-12-18 16:13 | EKG_ITS ---
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
[2024-12-18 16:47] LABS: Add Manual Diff / Slide Review NO; Basophils Absolute Auto 0 /uL (0-100); Basophils Percent Auto 0.4 % (0-2); Eosinophils Absolute Auto 100 /uL (0-450); Eosinophils Percent Auto 1.2 % (2-4); Hematocrit 39.6 % (36-46); Hemoglobin 13.2 g/dL (12.0-16.0); Lymphocytes Absolute Auto 1200 /uL (1100-4500); Lymphocytes Percent Auto 15.1 % (25-40); Mean Corpuscular HGB Conc 33.3 % (30-36); Mean Corpuscular Hemoglobin 28.1 PG (26-34); Mean Corpuscular Volume 84.4 fL (80-100); Monocytes Absolute Auto 800 /uL (0-900); Monocytes Percent Auto 9.6 % (3-14); Neutrophils Absolute Auto 6100 /uL (1500-7000); Neutrophils Percent Auto 73.7 % (50-75); Platelet Count 275 X10^3/uL (150-400); Red Blood Cell Count 4.69 X10^6/uL (4.0-5.2); Red Cell Distribution Width 13.4 % (11.6-14.8); White Blood Cell Count 8.3 X10^3/uL (4.5-11.0)
[2024-12-18 16:56] LABS: Alanine Aminotransferase 20 IU/L (<35); Albumin 3.9 g/dL (3.5-5.0); Albumin Globulin Ratio 1.4 (1.0-2.8); Alkaline Phosphatase 78 U/L (38-126); Aspartate Aminotransferase 34 IU/L (14-36); BUN Creatinine Ratio 16.7 (6-22); Bilirubin Total 0.5 mg/dL (0.2-1.3); Blood Urea Nitrogen 10 mg/dL (7-17); Calcium 8.6 mg/dL (8.4-10.2); Carbon Dioxide 23 mmol/L (22-32); Chloride 99 mmol/L (98-107); Estimated Glomerular Filt Rate > 60 mL/min (>60); Globulin 2.7 g/dL (1.7-4.1); Glucose 90 mg/dL (70-99); HEMOLYSIS < 15 (0-50); Sodium 132 mmol/L (137-145); Total Protein 6.6 g/dL (6.3-8.2)
[2024-12-18 17:02] LABS: Bacteria Urine None Seen; RBC Urine None Seen (0-5/HPF); Squamous Epithelial Cell Urine None Seen (0-5/HPF); Urine Volume 10mL (spun); WBC Urine 1-5/HPF (0-5/HPF)
[2024-12-18 17:03] LABS: Calcium Oxalate Crystals Urine Few; Uric Acid Crystals Urine Moderate
--- NOTE | 2024-12-18 17:19 | ED.ABDPAIN ---
HPI - Abdominal Pain General Chief Complaint: Abdominal Pain Stated Complaint: gas, change in stool color Time Seen by Provider: 12/18/24 17:09 Source: patient and RN notes reviewed Mode of arrival: Wheelchair History of Present Illness HPI narrative: Patient here for left lower quadrant pain with lin stool for the past 3 days. Has felt a lot of flatus as well. No nausea or vomiting no urinary complaints. No prior abdominal surgical history. No diarrhea no black or bloody stools. Blood pressure noted. She usually takes her blood pressure medications in the morning. Patient denies any chest pain back pain. Related Data Home Medications Medication Instructions Recorded Confirmed ascorbate calcium (vitamin C) 500 500 mg PO DAILY 07/03/23 03/11/24 mg tablet magnesium 200 mg tablet 200 mg PO DAILY 07/03/23 03/11/24 Previous Rx's Medication Instructions Recorded levalbuterol tartrate 45 2 puff inhalation Q4-6H PRN 08/28/23 mcg/actuation aerosol inhaler shortness of breath or wheezing #15 grams gabapentin 600 mg tablet 600 mg PO Q8H #270 tabs 10/07/24 lisinopril 20 mg tablet 20 mg PO DAILY #90 tabs 11/13/24 lorazepam 1 mg tablet 1 mg PO DAILY PRN anxiety #30 tabs 12/03/24 cefdinir 300 mg capsule 300 mg PO BID #10 caps 12/18/24 pantoprazole 40 mg tablet,delayed 40 mg PO DAILY #30 tabs 12/18/24 release (Protonix) sucralfate 1 gram tablet (Carafate) 1 g PO QAC #20 tabs 12/18/24 Allergies Allergy/AdvReac Type Severity Reaction Status Date / Time trazodone AdvReac Intermediate Constipatio Verified 12/18/24 16:02 n Review of Systems Review of Systems Narrative: GENERAL: Negative chills, fatigue, malaise, fever, sweats. HEENT: Negative sinus pain, ear pain, sore throat RESPIRATORY: Negative dyspnea, cough CARDIOVASCULAR: Negative chest pain, palpitations GASTROINTESTINAL: Negative vomiting, nausea, positive abdominal pain : Negative dysuria, frequency, hematuria MUSCULOSKELETAL: Negative muscle or bony pain SKIN: Negative rash, skin lesions NEUROLOGIC: Negative weakness, numbness ROS Unobtainable: All systems reviewed & are unremarkable except as noted in HPI and below Patient History Medical History (Updated 12/18/24 @ 18:25 by Dane Onofre MD) Chronic nausea Pneumonia (1984) Asthma (Unknown) Amenorrhea (Unknown) Hirsutism (Unknown) Hypertension (Unknown) Menieres disease (Unknown) Surgical History History of tonsillectomy and adenoidectomy (~1947) Family History Father Cancer Grandfather No problems noted. Grandmother No problems noted. Mother Goiter Sister No problems noted. Social History Smoking Status: Never smoker Tobacco: How many years used: 20 alcohol intake: former (socially when younger ) substance use type: does not use Smoking Status: Never smoker alcohol intake frequency: holidays/special occasions only Exam Narrative Exam Narrative: GENERAL: in no distress, not toxic not dyspneic HEAD: Normocephalic. EYES: Pupils equal round ENT: Mucous membranes moist. NECK: Trachea midline. CARDIOVASCULAR: Regular rate and rhythm RESPIRATORY: Clear to auscultation. Breath sounds equal bilaterally. No wheezes, rales, or rhonchi. GASTROINTESTINAL: Abdomen soft, left lower quadrant tenderness. No guarding no rebound. No peritoneal signs. Bowel sounds are present. No pain out of portion to exam. EXTREMITIES: No gross deformities. BACK: No flank tenderness. NEURO: AOx4. Clear speech SKIN: Warm and dry PSYCH: Not anxious, is cooperative Initial Vital Signs Initial Vital Signs: Vital Signs Temperature 98.8 F 12/18/24 16:02 Pulse Rate 52 L 12/18/24 16:02 Respiratory Rate 14 12/18/24 16:02 Blood Pressure 141/68 H 12/18/24 16:02 Pulse Oximetry 97 12/18/24 16:02 Oxygen Delivery Method Room Air 12/18/24 16:02 Course Orders Ordered: Discontinued Medications Cefdinir (Cefdinir 300 Mg Capsule) 300 mg PO NOW ONE Stop: 12/18/24 18:21 Last Admin: 12/18/24 18:27 Dose: 300 mg Documented By: REGINE Hydralazine HCl (Hydralazine 20 Mg/Ml Vial) 10 mg IV NOW ONE Stop: 12/18/24 17:19 Last Admin: 12/18/24 17:53 Dose: 10 mg Documented By: REGINE Sodium Chloride (Normal Saline 0.9%) 500 mls @ 1,000 mls/hr IV BOLUS ONE Stop: 12/18/24 17:50 Last Infusion: 12/18/24 18:33 Dose: Infused Documented By: Admin: 12/18/24 17:53 Dose: 1,000 mls/hr Documented By: REGINE Ondansetron HCl (Ondansetron 4 Mg/2 Ml Inj) 4 mg IV NOW ONE Stop: 12/18/24 16:14 Pantoprazole Sodium (Pantoprazole 40 Mg Vial) 40 mg IV NOW ONE Stop: 12/18/24 18:20 Last Admin: 12/18/24 18:26 Dose: 40 mg Documented By: REGINE Vital Signs Vital signs: Vital Signs - 8 hr 12/18/24 16:02 Temperature 98.8 F Pulse Rate 52 L Respiratory Rate 14 Blood Pressure 141/68 H Pulse Oximetry 97 Oxygen Delivery Method Room Air MDM - Abdominal Pain Lab Data 12/18/24 16:30 12/18/24 16:30 Labs: Lab Results 12/18/24 12/18/24 Range/Units 16:28 16:30 WBC 8.3 (4.5-11.0) X10^3/uL RBC 4.69 (4.0-5.2) X10^6/uL Hgb 13.2 (12.0-16.0) g/dL Hct 39.6 (36-46) % MCV 84.4 (80-100) fL MCH 28.1 (26-34) PG MCHC 33.3 (30-36) % RDW 13.4 (11.6-14.8) % Plt Count 275 (150-400) X10^3/uL Neut % (Auto) 73.7 (50-75) % Lymph % (Auto) 15.1 L (25-40) % [place] % (Auto) 9.6 (3-14) % Eos % (Auto) 1.2 L (2-4) % Baso % (Auto) 0.4 (0-2) % Neut # (Auto) 6100 (7240-4049) /uL Lymph # (Auto) 1200 (4592-2210) /uL [place] # (Auto) 800 (0-900) /uL Eos # (Auto) 100 (0-450) /uL Baso # (Auto) 0 (0-100) /uL Sodium 132 L (137-145) mmol/L Potassium 4.0 (3.4-5.1) mmol/L Chloride 99 (98-107) mmol/L Carbon Dioxide 23 (22-32) mmol/L BUN 10 (7-17) mg/dL Creatinine 0.60 (0.52-1.04) mg/dL Estimated GFR > 60 (>60) mL/min BUN/Creatinine Ratio 16.7 (6-22) Glucose 90 (70-99) mg/dL Calcium 8.6 (8.4-10.2) mg/dL Total Bilirubin 0.5 (0.2-1.3) mg/dL AST 34 (14-36) IU/L ALT 20 (<35) IU/L Alkaline Phosphatase 78 (38-126) U/L Total Protein 6.6 (6.3-8.2) g/dL Albumin 3.9 (3.5-5.0) g/dL Globulin 2.7 (1.7-4.1) g/dL Albumin/Globulin Ratio 1.4 (1.0-2.8) Lipase 98 (23-300) U/L Urine RBC None seen (0-5/HPF) Urine WBC 1-5/hpf (0-5/HPF) Ur Squamous Epith Cells None seen (0-5/HPF) Calcium Oxalate Crystal Few H Uric Acid Crystals Moderate H (None) Urine Bacteria None seen (None) Vol Urine Centrifuged 10ml (spun) Point of care testing: Urine Dip Bedside Urine Glucose Negative Bedside Urine Bilirubin - Negative Bedside Urine Ketone +/- 5 Urine Specific [place] 1.020 Bedside Urine Occult Blood - Negative Bedside Urine pH 6 Bedside Urine Protein - Negative Bedside Urine Urobilinogen - Negative Bedside Urine Nitrite - Negative Bedside Urine Leukocytes ++ [address] scan - abdomen/pelvis: Radiologist's Impression: [address] [address] [address] Scan Report Signed Patient: Maty Drake MR#: [id number] : 1945 Acct:[id number] Age/Sex: 79 / F Date of Service: 12/18/24 Loc: ED Accession Number: [id number] Procedure: CT abdomen pelvis w con Ordering Provider: Dane Onofre MD PROCEDURE: CT ABDOMEN PELVIS W CON INDICATIONS: IV contrast only/left lower quadrant pain TECHNIQUE: After the administration of intravenous contrast, axial sections acquired from the lung bases to the pubic symphysis. Coronal and sagittal reformats were performed. For radiation dose reduction, the following was used: automated exposure control, adjustment of mA and/or kV according to patient size. COMPARISON: None. FINDINGS: Image quality: Diagnostic. Lower Chest: Lung bases are clear. Small hiatal hernia. ABDOMEN: Liver: No solid mass. Gallbladder: No radiopaque gallstones or wall thickening. Biliary ducts: No biliary dilation. Pancreas: No ductal dilation. Spleen: Size is within normal limits. Indeterminate hypodense lesion within the superior aspect of the spleen measuring 2.7 cm. Additional subcentimeter hypodensities are seen within the spleen, too small to accurately characterize. Adrenal Glands: No adrenal nodules. Kidneys and Ureters: No hydronephrosis. No solid mass. No complex renal cystic lesion which requires follow up. Stomach and Bowel: Inflammation around the gastric pylorus posteriorly with likely associated ulceration. Normal colonic caliber, without significant wall thickening. Diverticulosis without evidence of acute diverticulitis. Normal appendix. Peritoneum: No abnormal intraperitoneal fluid. No free air. Ventral Wall: No significant ventral hernia. Abdominal Nodes: No retroperitoneal or mesenteric adenopathy by size criteria. Vessels: Aorta and inferior vena cava are normal in size. Atherosclerotic vascular calcifications. PELVIS: Pelvic Organs: Unremarkable. Bladder: No bladder wall thickening, accounting for underdistention. Pelvic Nodes: No enlarged lymph nodes. Miscellaneous: No inguinal hernias are seen. Bones: No aggressive osseous abnormality. Degenerative changes of the spine. Decreased osseous mineralization. IMPRESSION: 1. Findings most consistent with gastric ulcer. Severe thinning of the gastric mucosa. No extraluminal gas is seen. Recommend EGD to exclude underlying neoplastic process. 2. Indeterminate lesion within the superior aspect of the spleen measuring 2.7 cm. Recommend ultrasound follow-up to assess stability. 3. Diverticulosis without evidence of acute diverticulitis. 4. Please see above for additional findings. Dictated by: Joaquin Monsivais M.D. on 12/18/2024 at 18:08 Approved by: Joaquin Monsivais M.D. on 12/18/2024 at 18:14 [facility] Narrative Medical decision making narrative: Patient here for left lower quadrant pain with lin stool for the past 3 days. Has felt a lot of flatus as well. No nausea or vomiting no urinary complaints. No prior abdominal surgical history. No diarrhea no black or bloody stools. Blood pressure noted. She usually takes her blood pressure medications in the morning. Patient denies any chest pain back pain. After history and exam, CBC CMP lipase CT abdomen pelvis hydralazine normal saline MDM Medical records reviewed: No recent visit for this complaint Differential considered: Includes but not limited to pancreatitis diverticulitis bowel obstruction volvulus colitis UTI Lab Test results independently reviewed as above. Pertinent findings: WBC 8.3 hemoglobin 13.2 sodium 132 potassium 4.0 AST 34 ALT 20 urinalysis negative nitrite positive leukocyte esterase Imaging studies independently reviewed: CT abdomen pelvis possible gastric ulcer EKG sinus bradycardia rate 58 Consultations: None indicated at this time Re-evaluations: 6:21 p.m.. at bedside. Updated patient results. Treating for UTI as well as possible gastric ulcer. Referral for General surgery given for outpatient EGD. There was some concern on CT imaging for neoplastic/cancer but will need EGD for further evaluation. Pain is controlled. Return precautions reviewed. Patient agrees with treatment plan. She desires discharge home. Discussion: Appropriate for discharge home. Exam and laboratory studies are reassuring. Lower abdominal pain could be UTI. The bloating sensation could be from gastritis. Referrals provided. Prescriptions provided. Blood pressure improved at time of discharge. She desires discharge home. Diagnosis: Gastritis/UTI Discharge Plan Departure Patient Disposition: Home Clinical Impression: Acute UTI Gastritis Qualifiers: Gastritis type: unspecified gastritis Chronicity: unspecified Gastritis bleeding: presence of bleeding unspecified Qualified Code(s): K29.70 - Gastritis, unspecified, without bleeding Instructions: DI for Urinary Tract Infection (UTI), DI for Dyspepsia Activity Restrictions/Additional Instructions: Your exam and laboratory studies are reassuring. You are being treated for urinary tract infection with antibiotics. Prescription has been sent to your pharmacy and 1st dose has been started here today. You are also being treated for possible stomach ulcer, prescriptions have been sent to your pharmacy and 1st dose has been started today. Please see your family doctor next week for re-evaluation your blood pressure. Please call provided general surgery office on Saturday for scheduling for endoscopy of your stomach to evaluate for possible ulcer in the stomach. No fried fatty greasy foods or spicy foods. Keep well hydrated. Return if worse if any questions or concerns Prescriptions: New sucralfate [Carafate] 1 gram tablet 1 g PO QAC Qty: 20 0RF pantoprazole [Protonix] 40 mg tablet,delayed release (DR/EC) 40 mg PO DAILY Qty: 30 0RF cefdinir 300 mg capsule 300 mg PO BID Qty: 10 0RF No Action ascorbate calcium (vitamin C) 500 mg tablet 500 mg PO DAILY magnesium 200 mg tablet 200 mg PO DAILY levalbuterol tartrate 45 mcg/actuation HFA aerosol inhaler 2 puff INHALATION Q4-6H PRN (Reason: shortness of breath or wheezing) Qty: 15 5RF gabapentin 600 mg tablet 600 mg PO Q8H Qty: 270 1RF lisinopril 20 mg tablet 20 mg PO DAILY Qty: 90 0RF lorazepam 1 mg tablet 1 mg PO DAILY PRN (Reason: anxiety) Qty: 30 0RF Referrals: John Guaman MD [Physician] - Keyanna Meredith DO [Primary Care Provider] - Stand Alone Forms: Patient Portal/API/Survey
[2024-12-18 17:22] VITALS: PULSE 50; RESP 30; O2SAT 99
[2024-12-18 17:30] VITALS: PULSE 50; RESP 30; O2SAT 99
[2024-12-18 17:31] VITALS: BP 215/95; PULSE 51; RESP 33; O2SAT 99
[2024-12-18 17:32] LABS: Lipase 98 U/L (23-300)
--- NOTE | 2024-12-18 17:44 | PC.NURSE ---
This PELT GRADER attempted to put blood pressure cuff back on patient after she took it. Patient refused stating that it hurt too bad. This PELT GRADER explained that vitals only run once every 30 minutes and that patient's blood pressure was elevated and that should be monitored for the patient's safety. Patient still refused. RN notified.
[2024-12-18] MEDS: hydrALAZINE 20 MG/ML VIAL 10 MG IV (17:53)
[2024-12-18] MEDS: SODIUM CHLORIDE 0.9% 500 ML 1000 ML IV (17:53)
[2024-12-18 18:00] VITALS: PULSE 60; RESP 27; O2SAT 99
[2024-12-18] MEDS: PANTOPRAZOLE 40 MG VIAL IV (18:26)
[2024-12-18] MEDS: CEFDINIR 300 MG CAPSULE PO (18:27)
== END 2024-12-18 18:43 | disposition home or self-care (01) ==
PROVIDERS: Emergency Provider Emergency Medicine; PCP Family Medicine
DX: N39.0 Urinary tract infection, site not specified (principal); K29.70 Gastritis, unspecified, without bleeding; R00.1 Bradycardia, unspecified
CPT/HCPCS: 36415; 74177; 80053; 81003; 81015; 83690; 85025; 87086; 93005; 93010; 96361; 96374; 96375; 99284; J0360; J2470; Q9967